=== PATIENT | male | born 1940 | race Caucasian/White ===

== ENCOUNTER 2021-12-09 21:51 | Inpatient (IN) ==
[2021-12-09] MEDS ORDERED: Ondansetron ODT 4 MG TAB.RAPDIS SL PRN (23:19)
[2021-12-09] MEDS ORDERED: Naloxone 0.4 MG/ML INJ IVP PRN (23:19)
[2021-12-10] MEDS ORDERED: Aspirin 325 MG TABLET PO ONE (00:15)
[2021-12-10] MEDS ORDERED: *HR* Heparin 5,000 UNIT/ML VIAL IVP PRN ×2 (00:30)
[2021-12-10 01:20] LABS: Adenovirus Not Detected (Not Detect); Coronavirus 229E Not Detected (Not Detect); Coronavirus HKU1 Not Detected (Not Detect); Coronavirus NL63 Not Detected (Not Detect); Coronavirus OC43 Not Detected (Not Detect)
[2021-12-10 01:21] LABS: Bordetella Pertussis Not Detected (Not Detect); Chlamydophila pneumoniae Not Detected (Not Detect); Human Metapneumovirus Not Detected (Not Detect); Human Rhinovirus/Enterovirus Not Detected (Not Detect); Influenza A Subtype 2009 H1 Not Detected (Not Detect); Influenza B Not Detected (Not Detect); Mycoplasma pneumoniae Not Detected (Not Detect); Parainfluenza Virus 1 Not Detected (Not Detect); Parainfluenza Virus 2 Not Detected (Not Detect); Parainfluenza Virus 3 Not Detected (Not Detect); Parainfluenza Virus 4 Not Detected (Not Detect); Respiratory Syncytial Virus Not Detected (Not Detect); SARS-CoV-2 DETECTED (Not Detect)
[2021-12-10 01:51] LABS: Amorphous Sediment,Urine Few per hpf (None-Few); Bacteria,Urine Few per hpf (None-Few); Bilirubin,Urine Negative (Negative); Blood,Urine Moderate (Negative); Clarity,Urine Turbid (Clear); Color,Urine Yellow (Yellow); Glucose,Urine (UA) Normal (Normal); Granular Casts,Urine Few per lpf (None Seen); Ketones,Urine Negative (Negative); Leukocyte Esterase,Urine Negative (Negative); Mucus,Urine Few per lpf (None-Few); Nitrite,Urine Negative (Negative); PH,Urine 5.5 pH Units (5.0-8.0); Protein,Urine 70 mg/dL (Neg-Trace); Renal Epithelial Cells,Urine Few per hpf (None-Few); Specific Gravity,Urine 1.026 (1.010-1.025); Squamous Epithelial Cell,Urine Few per hpf (None-Few); Urobilinogen,Urine Normal (Normal); WBC,Urine 0-3 per hpf (0-3)
[2021-12-10] MEDS: Heparin 25,000UNIT/250ML 1/2NS 25,000 UNIT/250 ML IV.SOLN IVC SCH (01:56)
[2021-12-10 02:09] LABS: Hematocrit 31.1 % (37.5-50.1); Hemoglobin 9.5 g/dL (12.9-16.9); Mean Corpuscular HGB Conc 30.5 g/dL (31.6-35.5); Mean Corpuscular Hemoglobin 23.6 pg (28.0-33.3); Mean Corpuscular Volume 77.2 fL (83.0-100.0); Mean Platelet Volume 11.1 fL (9.4-12.4); Platelet Count 153 K/mcL (140-400); Red Blood Count 4.03 M/mcL (4.19-5.50); Red Cell Distribution Width 18.6 % (11.5-14.5); White Blood Count 7.9 K/mcL (4.3-11.1)
[2021-12-10 02:28] LABS: Albumin 3.4 g/dL (3.5-5.7); Albumin/Globulin Ratio 1.2 (1.1-2.2); Bilirubin,Total 0.6 mg/dL (0.3-1.0); Calcium 8.7 mg/dL (8.6-10.3); Chol/HDL Ratio 2.2 (0-4.9); Globulin 2.8 g/dL (2.4-3.5); Total Protein 6.2 g/dL (6.4-8.9)
[2021-12-10] MEDS: dexAMETHasone 4 MG TABLET PO SCH (09:55)
[2021-12-10] MEDS: Aspirin 81 MG TAB.CHEW PO SCH (09:56)
[2021-12-10 10:52] LABS: Troponin I 19.06 ng/mL (< 0.04)
[2021-12-10] MEDS: Furosemide 20 MG/2 ML VIAL IVP SCH ×2 (11:10→20:49)
[2021-12-10] MEDS: Azithromycin 500 MG in 0.9 % Sodium Chloride 250 ML IVPB SCH (20:48)
[2021-12-10] MEDS: cefTRIAXone 1,000 MG in Water for inj. (sterile) 10 ML IVP SCH (20:48)
[2021-12-11] MEDS: Furosemide 20 MG/2 ML VIAL IVP SCH ×2 (09:25→20:38)
[2021-12-11] MEDS: Aspirin 81 MG TAB.CHEW PO SCH (09:25)
[2021-12-11] MEDS: dexAMETHasone 4 MG TABLET PO SCH ×2 (09:25→12:01)
[2021-12-11 09:51] LABS: Hematocrit 27.6 % (37.5-50.1); Hemoglobin 8.6 g/dL (12.9-16.9); Mean Corpuscular HGB Conc 31.2 g/dL (31.6-35.5); Mean Corpuscular Hemoglobin 23.4 pg (28.0-33.3); Mean Corpuscular Volume 75.2 fL (83.0-100.0); Mean Platelet Volume 11.1 fL (9.4-12.4); Platelet Count 152 K/mcL (140-400); Red Blood Count 3.67 M/mcL (4.19-5.50); Red Cell Distribution Width 18.7 % (11.5-14.5); White Blood Count 6.4 K/mcL (4.3-11.1)
[2021-12-11] MEDS: Heparin 25,000UNIT/250ML 1/2NS 25,000 UNIT/250 ML IV.SOLN IVC SCH ×2 (09:54→17:23)
[2021-12-11 10:11] LABS: Albumin 3.2 g/dL (3.5-5.7); Albumin/Globulin Ratio 1.2 (1.1-2.2); Bilirubin,Total 0.7 mg/dL (0.3-1.0); Calcium 8.6 mg/dL (8.6-10.3); Globulin 2.7 g/dL (2.4-3.5); Potassium 3.5 mEq/L (3.5-5.1); Total Protein 5.9 g/dL (6.4-8.9)
[2021-12-11 10:33] LABS: Lymphocytes # 0.1 K/mcL (0.6-4.6); Monocytes # 0.3 K/mcL (0.0-1.3); Platelet Estimate Normal (Normal)
[2021-12-11] MEDS: Azithromycin 500 MG in 0.9 % Sodium Chloride 250 ML IVPB SCH (20:36)
[2021-12-11] MEDS: cefTRIAXone 1,000 MG in Water for inj. (sterile) 10 ML IVP SCH (20:37)
[2021-12-12 04:50] LABS: Basophils % 0.1 %; Hematocrit 27.9 % (37.5-50.1); Hemoglobin 8.7 g/dL (12.9-16.9); Mean Corpuscular HGB Conc 31.2 g/dL (31.6-35.5)
[2021-12-12 04:51] LABS: Immature Granulocytes % 0.7 % (0-4); Lymphocytes # 0.6 K/mcL (0.6-4.6); Mean Corpuscular Hemoglobin 23.3 pg (28.0-33.3); Mean Corpuscular Volume 74.8 fL (83.0-100.0); Mean Platelet Volume 11.3 fL (9.4-12.4); Monocytes # 0.2 K/mcL (0.0-1.3); Monocytes % 3.2 %; Neutrophils # 6.4 K/mcL (1.6-8.9); Platelet Count 152 K/mcL (140-400); Red Blood Count 3.73 M/mcL (4.19-5.50); Red Cell Distribution Width 18.7 % (11.5-14.5); White Blood Count 7.3 K/mcL (4.3-11.1)
[2021-12-12 05:07] LABS: Albumin 3.2 g/dL (3.5-5.7); Bilirubin,Total 0.5 mg/dL (0.3-1.0); Calcium 8.8 mg/dL (8.6-10.3); Globulin 3.2 g/dL (2.4-3.5); Potassium 3.7 mEq/L (3.5-5.1); Total Protein 6.4 g/dL (6.4-8.9)
[2021-12-12] MEDS: Furosemide 20 MG/2 ML VIAL IVP SCH ×2 (08:35→20:07)
[2021-12-12] MEDS: Aspirin 81 MG TAB.CHEW PO SCH (08:36)
[2021-12-12] MEDS: Metoprolol XL (24 HR) Succ 25 MG TAB.ER.24H PO SCH (12:00)
[2021-12-12] MEDS ORDERED: CefTRIAXone 1,000 MG VIAL ONE (18:15)
[2021-12-12] MEDS: cefTRIAXone 1,000 MG in Water for inj. (sterile) 10 ML IVP SCH (18:20)
[2021-12-12] MEDS: Azithromycin 500 MG in 0.9 % Sodium Chloride 250 ML IVPB SCH (18:20)
[2021-12-12] MEDS: Melatonin 3 MG TABLET PO PRN (20:07)
[2021-12-13] MEDS: Heparin 25,000UNIT/250ML 1/2NS 25,000 UNIT/250 ML IV.SOLN IVC SCH ×2 (00:36→22:47)
[2021-12-13 04:23] LABS: Hemoglobin 8.5 g/dL (12.9-16.9); Segmented Neutrophils % 89.2 %
[2021-12-13 04:25] LABS: Hematocrit 27.1 % (37.5-50.1); Immature Granulocytes % 0.8 % (0-4); Immature Platelets 8.1 % (1.1-6.1); Lymphocytes # 0.5 K/mcL (0.6-4.6); Lymphocytes % 6.7 %; Mean Corpuscular HGB Conc 31.4 g/dL (31.6-35.5); Mean Corpuscular Hemoglobin 23.4 pg (28.0-33.3); Mean Corpuscular Volume 74.7 fL (83.0-100.0); Mean Platelet Volume 10.8 fL (9.4-12.4); Monocytes # 0.3 K/mcL (0.0-1.3); Monocytes % 3.3 %; Neutrophils # 6.8 K/mcL (1.6-8.9); Platelet Count 141 K/mcL (140-400); Red Blood Count 3.63 M/mcL (4.19-5.50); Red Cell Distribution Width 18.5 % (11.5-14.5); White Blood Count 7.6 K/mcL (4.3-11.1)
[2021-12-13] MEDS: Metoprolol XL (24 HR) Succ 25 MG TAB.ER.24H PO SCH ×2 (08:52→19:52)
[2021-12-13] MEDS: Furosemide 20 MG/2 ML VIAL IVP SCH ×2 (08:52→19:52)
[2021-12-13] MEDS: Aspirin 81 MG TAB.CHEW PO SCH (08:52)
[2021-12-13] MEDS ORDERED: *HR* Metoprolol 5 MG/5 ML VIAL IVP ONE (09:45)
[2021-12-13] MEDS ORDERED: Metoprolol XL (24 HR) Succ 25 MG TAB.ER.24H PO ONE (10:31)
[2021-12-13] MEDS ORDERED: Amiodarone Premix 360 MG/200 ML BAG IVC ONE (12:01)
[2021-12-13] MEDS ORDERED: Azithromycin 500 MG VIAL ONE (18:05)
[2021-12-13] MEDS: Amiodarone Premix 360 MG/200 ML BAG IVC SCH (18:20)
[2021-12-13] MEDS: Azithromycin 500 MG in 0.9 % Sodium Chloride 250 ML IVPB SCH (19:50)
[2021-12-13] MEDS: cefTRIAXone 1,000 MG in Water for inj. (sterile) 10 ML IVP SCH (19:50)
[2021-12-14] MEDS: Melatonin 3 MG TABLET PO PRN (00:42)
[2021-12-14] MEDS: Amiodarone Premix 360 MG/200 ML BAG IVC SCH (05:36)
[2021-12-14] MEDS: Aspirin 81 MG TAB.CHEW PO SCH (09:02)
[2021-12-14] MEDS: Furosemide 20 MG/2 ML VIAL IVP SCH ×2 (09:02→20:45)
[2021-12-14] MEDS: Metoprolol XL (24 HR) Succ 25 MG TAB.ER.24H PO SCH ×2 (09:47→20:45)
[2021-12-14] MEDS: Heparin 25,000UNIT/250ML 1/2NS 25,000 UNIT/250 ML IV.SOLN IVC SCH (15:06)
[2021-12-14 15:36] LABS: Bilirubin,Total 0.4 mg/dL (0.3-1.0); Calcium 8.4 mg/dL (8.6-10.3); Potassium 3.4 mEq/L (3.5-5.1)
[2021-12-14] MEDS ORDERED: Remdesivir 200 MG in 0.9 % Sodium Chloride 100 ML IVPB ONE (16:00)
[2021-12-14] MEDS ORDERED: CefTRIAXone 1,000 MG VIAL ONE (19:29)
[2021-12-14] MEDS: cefTRIAXone 1,000 MG in Water for inj. (sterile) 10 ML IVP SCH (19:52)
[2021-12-14] MEDS: Azithromycin 500 MG in 0.9 % Sodium Chloride 250 ML IVPB SCH (19:54)
[2021-12-14] MEDS: Apixaban 5 MG TABLET PO SCH (20:45)
[2021-12-14] MEDS ORDERED: *HR* Metoprolol 5 MG/5 ML VIAL IVP ONE (21:39)
[2021-12-15] MEDS ORDERED: *HR* Metoprolol 5 MG/5 ML VIAL IVP ONE (00:47)
[2021-12-15] MEDS ORDERED: Amiodarone Premix 360 MG/200 ML BAG IVC ONE (01:45)
[2021-12-15] MEDS ORDERED: Amiodarone Premix 150 MG/100 ML BAG IVPB ONE (01:45)
[2021-12-15 02:37] LABS: Bilirubin,Direct 0.1 mg/dL (0.0-0.2); Bilirubin,Indirect 0.4 mg/dL (0.0-1.0); Bilirubin,Total 0.5 mg/dL (0.3-1.0); Globulin 3.1 g/dL (2.4-3.5); Total Protein 6.1 g/dL (6.4-8.9)
[2021-12-15] MEDS ORDERED: 0.9 % Sodium Chloride 250 ML IVC ONE (02:45)
[2021-12-15] MEDS: Apixaban 5 MG TABLET PO SCH ×2 (07:09→21:01)
[2021-12-15] MEDS: Metoprolol XL (24 HR) Succ 25 MG TAB.ER.24H PO SCH ×2 (07:09→21:01)
[2021-12-15] MEDS: Aspirin 81 MG TAB.CHEW PO SCH (07:10)
[2021-12-15] MEDS: Furosemide 20 MG/2 ML VIAL IVP SCH ×2 (07:10→21:00)
[2021-12-15] MEDS ORDERED: Amiodarone Premix 360 MG/200 ML BAG IVC SCH (07:47)
[2021-12-15 11:02] LABS: Potassium 3.4 mEq/L (3.5-5.1)
[2021-12-15] MEDS ORDERED: Remdesivir 100 MG in 0.9 % Sodium Chloride 100 ML IVPB SCH (16:00)
[2021-12-15] MEDS: cefTRIAXone 1,000 MG in Water for inj. (sterile) 10 ML IVP SCH (19:30)
[2021-12-15] MEDS: Doxycycline 100 MG CAPSULE PO SCH (21:01)
[2021-12-15] MEDS: *HR* Amiodarone 200 MG TABLET PO SCH (21:01)
[2021-12-16 06:28] LABS: Magnesium 2.1 mg/dL (1.6-2.6); Phosphorous 2.4 mg/dL (2.7-4.5); Potassium 3.5 mEq/L (3.5-5.1)
[2021-12-16 06:29] LABS: Albumin/Globulin Ratio 1.1 (1.1-2.2); Bilirubin,Direct 0.1 mg/dL (0.0-0.2); Bilirubin,Indirect 0.4 mg/dL (0.0-1.0); Bilirubin,Total 0.5 mg/dL (0.3-1.0); Globulin 2.8 g/dL (2.4-3.5); Total Protein 5.8 g/dL (6.4-8.9)
[2021-12-16 07:08] LABS: Basophils % 0.1 %; Hematocrit 27.9 % (37.5-50.1); Hemoglobin 8.7 g/dL (12.9-16.9); Immature Granulocytes % 2.4 % (0-4); Immature Platelets 16.5 % (1.1-6.1); Lymphocytes # 0.5 K/mcL (0.6-4.6); Lymphocytes % 5.4 %; Mean Corpuscular HGB Conc 31.2 g/dL (31.6-35.5); Mean Corpuscular Hemoglobin 23.1 pg (28.0-33.3); Mean Platelet Volume 11.1 fL (9.4-12.4); Monocytes # 0.7 K/mcL (0.0-1.3); Monocytes % 7.8 %; Neutrophils # 7.1 K/mcL (1.6-8.9); Nucleated Red Blood Cells 1.1 /100 WBC (0); Platelet Count 185 K/mcL (140-400); Red Blood Count 3.77 M/mcL (4.19-5.50); Red Cell Distribution Width 18.1 % (11.5-14.5); Segmented Neutrophils % 84.3 %; White Blood Count 8.4 K/mcL (4.3-11.1)
[2021-12-16] MEDS: Doxycycline 100 MG CAPSULE PO SCH ×2 (08:30→20:34)
[2021-12-16] MEDS: *HR* Amiodarone 200 MG TABLET PO SCH ×2 (08:30→20:34)
[2021-12-16] MEDS: Metoprolol XL (24 HR) Succ 25 MG TAB.ER.24H PO SCH ×2 (08:30→20:34)
[2021-12-16] MEDS: Aspirin 81 MG TAB.CHEW PO SCH (08:31)
[2021-12-16] MEDS: Apixaban 5 MG TABLET PO SCH ×2 (08:34→20:34)
[2021-12-16] MEDS: Furosemide 20 MG/2 ML VIAL IVP SCH ×2 (08:34→20:35)
[2021-12-17] MEDS: Aspirin 81 MG TAB.CHEW PO SCH (09:05)
[2021-12-17] MEDS: *HR* Amiodarone 200 MG TABLET PO SCH ×2 (09:05→20:53)
[2021-12-17] MEDS: Metoprolol XL (24 HR) Succ 25 MG TAB.ER.24H PO SCH ×2 (09:05→20:53)
[2021-12-17] MEDS: Apixaban 5 MG TABLET PO SCH ×2 (09:05→20:53)
[2021-12-17] MEDS: Doxycycline 100 MG CAPSULE PO SCH ×2 (09:05→20:53)
[2021-12-17] MEDS: Furosemide 20 MG/2 ML VIAL IVP SCH ×2 (09:06→20:53)
[2021-12-17 10:02] LABS: ABG Base Excess 7 mEq/L (-2 to 3); ABG HCO3 30 mEq/L (21-27); ABG Oxygen Saturation 97 % (95-98); ABG PCO2 36 mmHg (35-45); ABG PH 7.53 pH Units (7.32-7.45); ABG PO2 82 mmHg (85-104); ABG TCO2 31 mEq/L (20-26)
[2021-12-17] MEDS ORDERED: Dexamethasone Sodium Phos/PF 10 MG/ML VIAL IVP ONE (11:16)
[2021-12-17] MEDS ORDERED: Iopamidol - 370 500 ML MLS IVP ONE (11:20)
[2021-12-17 17:29] LABS: Albumin 3.1 g/dL (3.5-5.7); Bilirubin,Direct 0.1 mg/dL (0.0-0.2); Bilirubin,Indirect 0.5 mg/dL (0.0-1.0); Bilirubin,Total 0.6 mg/dL (0.3-1.0); Calcium 8.4 mg/dL (8.6-10.3); Magnesium 2.2 mg/dL (1.6-2.6); Phosphorous 3.5 mg/dL (2.7-4.5); Potassium 3.6 mEq/L (3.5-5.1); Total Protein 6.1 g/dL (6.4-8.9)
[2021-12-18] MEDS: Furosemide 20 MG/2 ML VIAL IVP SCH ×2 (10:00→19:12)
[2021-12-18] MEDS: Dexamethasone Sodium Phos/PF 10 MG/ML VIAL IVP SCH (10:00)
[2021-12-18] MEDS: Apixaban 5 MG TABLET PO SCH ×2 (10:00→19:11)
[2021-12-18] MEDS: Metoprolol XL (24 HR) Succ 25 MG TAB.ER.24H PO SCH ×2 (10:00→19:11)
[2021-12-18] MEDS: *HR* Amiodarone 200 MG TABLET PO SCH ×2 (10:00→19:11)
[2021-12-18] MEDS: Doxycycline 100 MG CAPSULE PO SCH ×2 (10:00→19:11)
[2021-12-18] MEDS: Aspirin 81 MG TAB.CHEW PO SCH (10:00)
[2021-12-18] MEDS ORDERED: D5% in Water 1,000 ML IVC PRN (11:49)
[2021-12-18] MEDS ORDERED: Dextrose Gel 15 GM/37.5 ML TUBE PO PRN ×2 (11:49)
[2021-12-18] MEDS ORDERED: *HR* Dextrose 50 % in Water (Syg) 50 ML SYRINGE IVP PRN (11:49)
[2021-12-18] MEDS: Fluticasone Propionate Nasal 50 MCG/SPRAY BOTTLE NS SCH (14:17)
[2021-12-18] MEDS: Insulin LISPRO 300 UNITS/3 ML VIAL SUBQ SCH (19:24)
[2021-12-19] MEDS ORDERED: Saline Nasal Spray 44 ML BOTTLE NS ONE (06:05)
[2021-12-19] MEDS: Metoprolol XL (24 HR) Succ 25 MG TAB.ER.24H PO SCH ×2 (09:50→21:01)
[2021-12-19] MEDS: Dexamethasone Sodium Phos/PF 10 MG/ML VIAL IVP SCH (09:50)
[2021-12-19] MEDS: Doxycycline 100 MG CAPSULE PO SCH ×2 (09:50→21:01)
[2021-12-19] MEDS: *HR* Amiodarone 200 MG TABLET PO SCH ×2 (09:50→21:01)
[2021-12-19] MEDS: Apixaban 5 MG TABLET PO SCH ×2 (09:50→21:01)
[2021-12-19] MEDS: Fluticasone Propionate Nasal 50 MCG/SPRAY BOTTLE NS SCH (09:51)
[2021-12-19] MEDS: Furosemide 20 MG/2 ML VIAL IVP SCH ×2 (09:52→21:01)
[2021-12-19] MEDS: Insulin LISPRO 300 UNITS/3 ML VIAL SUBQ SCH ×3 (09:52→16:58)
[2021-12-19] MEDS: Aspirin 81 MG TAB.CHEW PO SCH (09:53)
== END 2021-12-19 23:59 | disposition other institution (70) | DRG 177 ==
LOC: 3NENU → SUATTDRO 23:19
PROVIDERS: ADMIT Student in an Organized Health Care Education/Training Program; ATTEND Internal Medicine